=== PATIENT | male | born 1980 | race Caucasian/White ===

== ENCOUNTER 2017-07-07 10:02 | Emergency (ER) | payer OTHER ==
[2017-07-07 10:22] VITALS: BP 112/75
--- NOTE | 2017-07-07 10:37 | UC ---
Skin Complaint HPI - HPI Summary HPI Summary: lesion on back of scalp been there for a few days, draining fluid area is large and indurated, no fluctuance noted. - History of Current Complaint Chief Complaint: UCSkin Time Seen by Provider: 07/07/17 10:17 Stated Complaint: SKIN COMPLAINT Hx Obtained From: Patient Onset/Duration: Sudden Onset, Lasting Days Timing: Constant - Allergy/Home Medications Allergies/Adverse Reactions: Allergies Allergy/AdvReac Type Severity Reaction Status Date / Time No Known Allergies Allergy Verified 07/07/17 10:22 Home Medications: Home Medications Aspirin [Aspirin 81 MG TAB] 81 mg PO Q12H 07/07/17 [History Confirmed 07/07/17] Gabapentin CAP(*) [Neurontin 100 mg CAP(*)] 2 tab PO TID 07/07/17 [History Confirmed 07/07/17] Naproxen [Naproxen DR 500 MG TAB] 500 mg PO BID 07/07/17 [History Confirmed ] Oxycodone W/ Acetaminophen [Percocet 7.5-325 mg (NF)] 1 tab PO Q4H PRN 07/07/17 [History Confirmed 07/07/17] Review of Systems Constitutional: Negative Skin: Other - lesion on scalp Eyes: Negative ENT: Negative Respiratory: Negative Cardiovascular: Negative Gastrointestinal: Negative Genitourinary: Negative Motor: Negative Neurovascular: Negative Musculoskeletal: Negative Neurological: Negative Psychological: Negative Is Patient Immunocompromised?: No All Other Systems Reviewed And Are Negative: Yes PMH/Surg Hx/FS Hx/Imm Hx Previously Healthy: Yes - Surgical History Surgical History: Yes Surgery Procedure, Year, and Place: 1988 [facility]; bariatric surgery 2013. 2007 [place] CARPAL TUNNEL [facility] - Family History Known Family History: Positive: Hypertension - Social History Alcohol Use: None Substance Use Type: None, Prescribed Smoking Status (MU): Former Smoker When Did the Patient Quit Smoking/Using Tobacco: 4 years ago - Immunization History Most Recent Tetanus Shot: unknown Physical Exam Triage Information Reviewed: Yes Appearance: Well-Nourished, Pain Distress Vital Signs: Initial Vital Signs Temp 98.9 F 07/07/17 10:11 Pulse 106 07/07/17 10:11 Resp 18 07/07/17 10:11 BP 112/75 07/07/17 10:11 Vital Signs Reviewed: Yes Eyes: Positive: Conjunctiva Clear ENT: Positive: Pharynx normal, TMs normal Dental Exam: Normal Neck: Positive: Supple, Tenderness @ - posterior neck, Enlarged Nodes @ - posterior right ear Respiratory Exam: Normal Respiratory: Positive: Chest non-tender, Lungs clear, Normal breath sounds Cardiovascular Exam: Normal Cardiovascular: Positive: No Murmur, Pulses Normal, Tachycardia Abdominal Exam: Normal Bowel Sounds: Positive: Present Musculoskeletal Exam: Normal Neurological Exam: Normal Psychological Exam: Normal Skin: Positive: Other - large boil on back of neck at hairline Course/Dx - Course Course Of Treatment: hx obtained, exam performed ,meds reviewed, given a shot of rocephin, placed on bactrim, adivsed hot packing and if not improving follow up with PCP in 1 day - Differential Diagnoses - Skin Complaint Differential Diagnoses: Abscess - Diagnoses Provider Diagnoses: abscess on back on neck Discharge - Discharge Plan Condition: Stable Disposition: HOME Patient Education Materials: Abscess (ED) Referrals: Augustine Harding MD [Primary Care Provider] - Additional Instructions: 1. increase fluid intake, 2. Hot pack the back of neck routinely throughout the day. 3. all ow to drain and cover with dry steril dressing if draining fluid 4. if not improving, or redness begins moving toward the front please follow up.
[2017-07-07] MEDS ORDERED: cefTRIAXone VIAL(*) 1,000 MG VIAL IM ONE (10:43)
[2017-07-07] MEDS ORDERED: Lidocaine 1% MPF* 2 ML VIAL INJ ONE (10:43)
== END 2017-07-07 11:37 | disposition home or self-care (01) ==
LOC: UCCORT 10:02
DX: L02.11 Cutaneous abscess of neck (principal); Z79.82 Long term (current) use of aspirin; Z87.891 Personal history of nicotine dependence
CPT/HCPCS: 96372; 99212; G0463; J0696

== ENCOUNTER 2023-06-15 13:58 | Observation (INO) ==
[2023-06-15] MEDS ORDERED: Thiamine 100 MG/ML 2 ml VIAL 500 MG in NS 0.9% 250 ml 250 ML IV ONE (14:17)
[2023-06-15 14:37] LABS: ABS Monocytes 0.5 10^3/uL (0.0-1.1); ABS Neutrophils 4.2 10^3/uL (1.5-7.6); ABS Nucleated RBC 0.02 10^3/ul; Eosinophil % 0.3 %; Hematocrit 44.8 % (38-53); Hemoglobin 15.2 g/dL (13.2-16.3); Lymphocyte % 16.8 %; Mean Corpuscular Hemoglobin 31.2 pg (27-33); Mean Corpuscular Volume 91.7 fL (80-97); Mean Platelet Volume 8.5 fL (7.5-11.2); Nucleated Red Blood Cells % 0.3 %/100WBC (0.0-0.8); Platelet Count 220 10^3/uL (150-450); Red Blood Count 4.89 10^6/uL (4.06-5.63); Red Cell Distribution Width 13.4 % (12-17); White Blood Count 5.8 10^3/uL (3.6-10.2)
[2023-06-15 15:05] LABS: Alcohol, S < 13 mg/dL (<13)
[2023-06-15 15:07] LABS: TSH Ultra Thyroid Stim Horm 0.92 mcIU/mL (0.34-5.60)
[2023-06-15 15:08] LABS: ALT 15 U/L (7-52); AST 15 U/L (13-39); Albumin 4.7 g/dL (3.2-5.2); Albumin/Globulin Ratio 2.2 (1-3); Alkaline Phosphatase 57 U/L (35-149); Anion Gap 8 mmol/L (2-16); Blood Urea Nitrogen 14 mg/dL (6-24); CO2 Carbon Dioxide 30 mmol/L (22-32); Calcium 9.7 mg/dL (8.6-10.3); Chloride 102 mmol/L (101-111); Creatinine, Serum 0.94 mg/dL (0.67-1.17); Globulin 2.1 g/dL (2-4); Glucose 111 mg/dL (70-100); Potassium 4.1 mmol/L (3.5-5.0); Sodium 140 mmol/L (135-145); Total Protein 6.8 g/dL (6.4-8.9); eGFR CKD-EPI 103.8 (>60)
[2023-06-15 19:29] LABS: Folate 16.75 ng/mL (5.90-24.80)
[2023-06-15 19:30] LABS: Vitamin B12 422 pg/mL (180-914)
[2023-06-15 19:33] LABS: Vitamin D Total 25(OH) 21.3 ng/mL (20-50)
[2023-06-15] MEDS: Thiamine 100 MG/ML 2 ml VIAL 500 MG in NS 0.9% 250 ml 250 ML IV SCH (23:09)
[2023-06-16] MEDS: Thiamine 100 MG/ML 2 ml VIAL 500 MG in NS 0.9% 250 ml 250 ML IV SCH (10:07)
[2023-06-16 12:14] LABS: Urine Appearance Clear; Urine Bilirubin Negative (Negative); Urine Blood Negative (Negative); Urine Color Yellow; Urine Glucose Negative (Negative); Urine Ketones Trace (Negative); Urine Nitrite Negative (Negative); Urine Protein Negative (Negative); Urine Urobilinogen Negative (Negative)
[2023-06-16 12:24] LABS: Urine Benzodiazepine Screen None Detected (None Detect); Urine Cannabinoids Screen None Detected (None Detect); Urine Opiates Screen None Detected (None Detect)
[2023-06-16] MEDS ORDERED: Lorazepam PYXIS KEY PRN (12:51)
[2023-06-16] MEDS ORDERED: LORazepam 2 mg VIAL 1 ml IV PUSH PRN (12:51)
[2023-06-16] MEDS ORDERED: Haloperidol 5 mg/ml SDV IV/IM 5 MG/ML AMP IV SLOW PU PRN (12:51)
[2023-06-16 14:54] VITALS: BP 134/72
== END 2023-06-16 14:26 | disposition home or self-care (01) ==
LOC: ED 13:58 → EDHOLD 13:58 → MEDTELE 19:46
PROVIDERS: ADMIT Hospitalist; ATTEND Hospitalist